=== PATIENT | male | born 1970 | race Two or more races ===

== ENCOUNTER 2018-12-27 09:12 | Outpatient (CLI) | payer OTHER | END 2018-12-27 09:22 | disposition home or self-care (01) | LOC: TOM 09:12 | DX: R10.11 Right upper quadrant pain (principal) ==

== ENCOUNTER 2018-12-28 03:54 | Emergency (ER) | payer OTHER ==
[~2018-12-28] VITALS: Ht 180.3 cm; Wt 90.7 kg
== END 2018-12-28 11:13 | disposition home or self-care (01) ==
LOC: ER 03:54
DX: K29.70 Gastritis, unspecified, without bleeding (principal); R19.09 Other intra-abdominal and pelvic swelling, mass and lump